=== PATIENT | male | born 1985 | race Caucasian/White ===

== ENCOUNTER 2017-05-28 14:43 | Emergency (ER) | payer OTHER ==
[~2017-05-28] VITALS: Ht 175.3 cm; Wt 84.8 kg
[2017-05-28 14:47] VITALS: TEMP 36.8; Ht 175.3 cm; Wt 84.8 kg
[2017-05-28] MEDS ORDERED: SODIUM CHLORIDE 0.9% 1000ML 1,000 ML IV STA (15:09)
[2017-05-28] MEDS ORDERED: KETOROLAC TROMETHAMINE 30 MG/ML VIAL IV STA (15:09)
[2017-05-28] MEDS ORDERED: DIAZEPAM INJ 5 MG/ML 2 ML CARP IV STA (15:35)
[2017-05-28] MEDS ORDERED: MULT-1073 PO (15:36)
[2017-05-28 15:39] LABS: BASO % 0.5 %; BASO ABS # 0.02 K/uL (0-0.2); EOS % 1.4 %; EOS ABS # 0.06 K/uL (0-0.5); HEMATOCRIT 48.9 % (42-52); HEMOGLOBIN 17.3 g/dL (14.0-18.0); IG# 0.02 K/uL (0.00-0.02); LYMPH % 39.6 %; LYMPH ABS # 1.72 K/uL (1.2-3.4); MEAN CELL VOLUME 89.1 fL (80-100); MEAN CORPUSCULAR HEMOGLOBIN 31.5 pg (25-34); MEAN CORPUSCULAR HGB CONC 35.4 g/dl (32-36); MEAN PLATELET VOLUME 11.2 fL (7.4-10.4); MONO % 8.1 %; MONO ABS # 0.35 K/uL (0.11-0.59); NEUT % 49.9 %; NEUT ABS # 2.17 K/uL (1.4-6.5); PLATELET COUNT 178 K/uL (130-400); RED CELL DISTRIBUTION WIDTH CV 12.5 % (11.5-14.5); RED CELL DISTRIBUTION WIDTH SD 40.7 fL (36.4-46.3); WHITE BLOOD COUNT 4.34 K/uL (4.8-10.8)
[2017-05-28 15:57] LABS: ALBUMIN 4.1 gm/dl (3.4-5.0); CALCIUM 8.9 mg/dl (8.5-10.1); CREATININE 0.97 mg/dl (0.60-1.40); POTASSIUM 4.1 mmol/L (3.5-5.1)
[2017-05-28 16:00] LABS: TOTAL PROTEIN 7.6 gm/dl (6.4-8.2)
--- NOTE | 2017-05-28 16:20 | DIAGNOSTIC IMAGING REPORT ---
ABD/PELVIS WITHOUT FOR STONE HISTORY: 31 years-old Male left flank pain acute left-sided flank pain COMPARISON: None available TECHNIQUE: Multiple axial CT images of the abdomen and pelvis were obtained without the use of IV contrast. A dose lowering technique was used consistent with the principals of MERLYN. FINDINGS: There is minimal dependent subsegmental bibasilar atelectasis. 2 mm solid nodule of the lateral basal segment left lower lobe is likely benign. There is no pneumatosis or pneumoperitoneum identified. Imaged inferior cardiac chambers are unremarkable. Evaluation of the solid abdominal organs is limited without the use of IV contrast. Within the limitations of the study, the liver, spleen, pancreas and adrenal glands are unremarkable. Gallbladder is mildly contracted. 2 mm calcification of the spleen noted. Kidneys, ureters and urinary bladder are unremarkable. Phleboliths noted within the pelvis. No ureteral calculi or obstructive uropathy. Aorta is normal in course and caliber. No bulky adenopathy. No bowel obstruction or focal bowel wall thickening identified. Rectosigmoid and descending colon are collapsed. The appendix is normal in caliber and is air-filled. 9 mm appendicolith is seen within the appendiceal tip. Soft tissues are unremarkable. Mild degenerative changes of the bilateral SI joints. Degenerative changes are also noted at the L2 vertebral body. IMPRESSION: 1. No acute intra-abdominal or intrapelvic abnormality identified, specifically no renal calculi or obstructive uropathy. 2. [address] evidence of acute appendicitis. 3. No bowel obstruction or definite bowel wall thickening identified. The above report was generated using voice recognition software. It may contain grammatical, syntax or spelling errors. Electronically signed by: Chester Cavazos M.D. 05/28/2017 4:19 PM Dictated Date/Time: 05/28/2017 4:09 PM
[2017-05-28] MEDS ORDERED: METH4PAK PO ×2 (16:59→17:08)
[2017-05-28] MEDS ORDERED: CYCL10TA6 PO ×2 (16:59→17:08)
--- NOTE | 2017-05-28 17:00 | EMERGENCY ROOM VISIT NOTE ---
History First contact with patient: 14:52 Chief Complaint: BACK PAIN Stated Complaint: SHARP SIDE/JAS PAIN, CANT STRAIGHTEN BACK History of Present Illness The patient is a 31 year old male who presents to the Emergency Room with complaints of left flank pain which began this morning. The patient describes a sharp pain which he locates just below the left ribs which was initially intermittent, but worsening throughout the day. The patient went to school, and was in class, where he sat down and noticed increased pain. He describes a spasms sensation and states the pain is a severe pressure in his back. He is most comfortable when hunched over, and states he feels that putting pressure on the muscles helps with the pain. He denies any urinary symptoms, but has been unable to urinate yet today. He does have a history of kidney stones, and states his symptoms now are consistent with previous stones. He does report an episode of diaphoresis associated with the very severe pain which occurred this afternoon while attempting to get up out of a chair. He states the pain is shooting around toward the left lower quadrant of the abdomen, and states it is significantly worse with movement. He has not taken any medications for his pain. He is unable to lie down comfortably. He denies any paresthesias, numbness, tingling, or weakness of his lower extremities. Review of Systems A complete 10 point review of systems was reviewed with the patient with pertinent positives and negatives as per history of present illness. All else were negative. Past Medical/Surgical History Nephrolithiasis Social History Smoking Status: Never Smoker Smokeless Tobacco Use: No Alcohol Use: none Drug Use: none Marital Status: Housing Status: lives with family Occupation Status: student Current/Historical Medications Scheduled Cyclobenzaprine Hcl (Flexeril), 10 MG PO TID Methylprednisolone (Medrol Dosepak), 0 PO DAILY Multiple Vitamins W/ Minerals (Multivitamin Mens), 1 TAB PO DAILY Allergies None Physical Exam Vital Signs Date Time Temp Pulse Resp B/P (MAP) Pulse Ox O2 Delivery O2 Flow Rate FiO2 05/28/17 16:11 65 129/66 97 Room Air 05/28/17 14:47 36.8 92 16 133/85 96 Room Air Physical Exam VITALS: Vitals are noted on the nurse's note and reviewed by myself. Vital signs stable. GENERAL: This is a 31-year-old white male, in no acute distress, nondiaphoretic , well-developed well-nourished. SKIN: The skin was without rashes, erythema, edema, or bruising. There is no tenting of the skin. Capillary reflex less than 2 seconds. HEAD: Normocephalic atraumatic. EARS: External auditory canals clear, tympanic membranes pearly fisher without erythema or effusion bilaterally. EYES: Pupils equal round and reactive to light and accommodation. Conjunctivae without injection, sclerae without icterus. Extraocular movements intact. NOSE: Patent, turbinates without inflammation or discharge. No sinus tenderness. MOUTH: Mucous membranes moist. Tonsils are not enlarged. Pharynx without erythema or exudate. Uvula midline. Airway patent. Tongue does not deviate. NECK: Supple without nuchal rigidity. No lymphadenopathy. No thyromegaly. Cervical spine is nontender. No JVD. HEART: Regular rate and rhythm without murmurs gallops or rubs. LUNGS: Clear to auscultation bilaterally without wheezes, rales or rhonchi. No dullness to percussion. No retractions or accessory muscle use. ABDOMEN: Positive bowel sounds x 4. Normal tympanic percussion. Positive CVA tenderness on the left. There is some left lower quadrant abdominal discomfort on palpation. Soft, without masses or organomegaly. Holden sign negative. No guarding or rebound tenderness. MUSCULOSKELETAL: No muscle atrophy, erythema, or edema noted of the back. There is no tenderness over the lumbar spinous processes. There is mild tenderness over the paraspinous muscles on the left. There is no tenderness over the thoracic spine or paraspinous muscles. There are muscle spasms present. The patient is slow to move around with maximum tenderness with position changes. Negative straight leg raise test. NEURO: Patient was alert and oriented to person place and time. Normal sensation to light and sharp touch. Deep tendon reflexes 2+ throughout. No focal neurological deficits. Medical Decision & Procedures ER Provider Diagnostic Interpretation: ABD/PELVIS WITHOUT FOR STONE HISTORY: 31 years-old Male left flank pain acute left-sided flank pain COMPARISON: None available TECHNIQUE: Multiple axial CT images of the abdomen and pelvis were obtained without the use of IV contrast. A dose lowering technique was used consistent with the principals of ALARA. FINDINGS: There is minimal dependent subsegmental bibasilar atelectasis. 2 mm solid nodule of the lateral basal segment left lower lobe is likely benign. There is no pneumatosis or pneumoperitoneum identified. Imaged inferior cardiac chambers are unremarkable. Evaluation of the solid abdominal organs is limited without the use of IV contrast. Within the limitations of the study, the liver, spleen, pancreas and adrenal glands are unremarkable. Gallbladder is mildly contracted. 2 mm calcification of the spleen noted. Kidneys, ureters and urinary bladder are unremarkable. Phleboliths noted within the pelvis. No ureteral calculi or obstructive uropathy. Aorta is normal in course and caliber. No bulky adenopathy. No bowel obstruction or focal bowel wall thickening identified. Rectosigmoid and descending colon are collapsed. The appendix is normal in caliber and is air-filled. 9 mm appendicolith is seen within the appendiceal tip. Soft tissues are unremarkable. Mild degenerative changes of the bilateral SI joints. Degenerative changes are also noted at the L2 vertebral body. IMPRESSION: 1. No acute intra-abdominal or intrapelvic abnormality identified, specifically no renal calculi or obstructive uropathy. 2. [address] evidence of acute appendicitis. 3. No bowel obstruction or definite bowel wall thickening identified. The above report was generated using voice recognition software. It may contain grammatical, syntax or spelling errors. Electronically signed by: Chester Cavazos M.D. 05/28/2017 4:19 PM Dictated Date/Time: 05/28/2017 4:09 PM Laboratory Results 05/28/17 15:00 Red Blood Count 5.49, Mean Corpuscular Volume 89.1, Mean Corpuscular Hemoglobin 31.5, Mean Corpuscular Hemoglobin Concent 35.4, Mean Platelet Volume 11.2, Neutrophils (%) (Auto) 49.9, Lymphocytes (%) (Auto) 39.6, Monocytes (%) (Auto) 8.1, Eosinophils (%) (Auto) 1.4, Basophils (%) (Auto) 0.5, Neutrophils # (Auto) 2.17, Lymphocytes # (Auto) 1.72, Monocytes # (Auto) 0.35, Eosinophils # (Auto) 0.06, Basophils # (Auto) 0.02 05/28/17 15:00 Test 05/28/17 15:00 05/28/17 16:40 White Blood Count 4.34 K/uL (4.8-10.8) Red Blood Count 5.49 M/uL (4.7-6.1) Hemoglobin 17.3 g/dL (14.0-18.0) Hematocrit 48.9 % (42-52) Mean Corpuscular Volume 89.1 fL (80-100) Mean Corpuscular Hemoglobin 31.5 pg (25-34) Mean Corpuscular Hemoglobin Concent 35.4 g/dl (32-36) Platelet Count 178 K/uL (130-400) Mean Platelet Volume 11.2 fL (7.4-10.4) Neutrophils (%) (Auto) 49.9 % Lymphocytes (%) (Auto) 39.6 % Monocytes (%) (Auto) 8.1 % Eosinophils (%) (Auto) 1.4 % Basophils (%) (Auto) 0.5 % Neutrophils # (Auto) 2.17 K/uL (1.4-6.5) Lymphocytes # (Auto) 1.72 K/uL (1.2-3.4) Monocytes # (Auto) 0.35 K/uL (0.11-0.59) Eosinophils # (Auto) 0.06 K/uL (0-0.5) Basophils # (Auto) 0.02 K/uL (0-0.2) RDW Standard Deviation 40.7 fL (36.4-46.3) RDW Coefficient of Variation 12.5 % (11.5-14.5) Immature Granulocyte % (Auto) 0.5 % Immature Granulocyte # (Auto) 0.02 K/uL (0.00-0.02) Anion Gap 8.0 mmol/L (3-11) Est Creatinine Clear Calc Drug Dose 109.4 ml/min Estimated GFR () 119.2 Estimated GFR (Non- 102.9 BUN/Creatinine Ratio 13.8 (10-20) Calcium Level 8.9 mg/dl (8.5-10.1) Total Bilirubin 1.2 mg/dl (0.2-1) Aspartate Amino Transf (AST/SGOT) 21 U/L (15-37) Alanine Aminotransferase (ALT/SGPT) 36 U/L (12-78) Alkaline Phosphatase 46 U/L (45-117) Total Protein 7.6 gm/dl (6.4-8.2) Albumin 4.1 gm/dl (3.4-5.0) Globulin 3.5 gm/dl (2.5-4.0) Albumin/Globulin Ratio 1.2 (0.9-2) Medications Administered Medications (Trade) Dose Ordered Sig/Yovany Route Start Time Stop Time Status Last Admin Dose Admin Sodium Chloride 1,000 ml @ 999 mls/hr Q1H1M STAT IV 05/28/17 15:09 05/28/17 16:09 DC 05/28/17 15:22 999 MLS/HR Ketorolac Tromethamine (Toradol Inj) 30 mg NOW STAT IV 05/28/17 15:09 05/28/17 15:11 DC 05/28/17 15:22 30 MG Diazepam (Valium Inj) 5 mg NOW STAT IV 05/28/17 15:35 05/28/17 15:36 DC 05/28/17 15:49 5 MG ED Course The patient was seen and evaluated as above. IV access obtained, labs drawn. The patient was given 30 mg Toradol and 1 L normal saline solution IV. The patient reports ongoing pain. He was given 5 mg Valium IV and notes significant improvement. CT abdomen/pelvis without contrast was ordered. This was reviewed by myself and radiologist as above. Lab results reviewed by myself. I discussed the findings with the patient at bedside. He is feeling much better. Discharge instructions reviewed, the patient was discharged home in good condition. Medical Decision This is a 31-year-old male patient presents to the emergency department today complaining of left flank pain. The pain does seem to radiate into the left lower quadrant of the abdomen. The patient does have a history of kidney stones , and states this pain is consistent with previous episodes of since he has experienced. The pain is not completely consistent with either nephrolithiasis or muscle strain pain, and there was no injury preceding the pain. Workup was initiated. CT scan did not show any signs of acute nephrolithiasis or ureteral stone. There is no obvious cause for the patient's pain on scan, however he does have some degenerative changes in the SI joints and vertebrae. The patient 's laboratory workup did not show any significant leukocytosis, anemia, thrombocytopenia. There was no significant renal, hepatic, electrolyte abnormalities. The patient's urinalysis was negative for blood or signs of infection. The patient's symptoms significantly improved with Valium for muscle spasms, and I suspect a possible lumbar strain or recently passed stone. The patient will be treated with oral steroids and muscle relaxers outpatient for his symptoms. He was encouraged to follow-up closely with his primary care provider. Discharge instructions reviewed, the patient was discharged home in good condition. Etiologies such as renal colic, appendicitis, diverticulitis, mesenteric ischemia, aortic pathology, infections, inflammatory bowel disease, PUD, biliary pathology, UTI, musculoskeletal, as well as others were entertained. Medication Reconcilliation Current Medication List: was personally reviewed by me Blood Pressure Screening Patient's blood pressure: Normal blood pressure Impression Primary Impression: Strain of lumbar region Additional Impression: Flank pain Departure Information Dispostion Home / Self-Care Condition GOOD Prescriptions Methylprednisolone (MEDROL DOSEPAK) 4 Mg Kevon 0 PO DAILY, #1 PKT Prov: Allison Ferrer PA-C 05/28/17 Cyclobenzaprine Hcl (FLEXERIL) 10 Mg Tab 10 MG PO TID, #15 TAB Prov: Allison Ferrer PA-C 05/28/17 Referrals No Doctor, Assigned (PCP) Patient Instructions ED Flank Pain Uncertain Cause, ED Neck Back Pain General, [facility] Additional Instructions You have been treated in the Emergency Department for Back Pain. You have received pain medicine in the emergency department which impairs your ability to operate a vehicle. It is illegal for you to drive after receiving these medicines. You have been prescribed a Medrol Dosepak. This is a steroid which will help decrease your inflammation, redness, and itch. Take the medicine as prescribed. Take the ENTIRE 6 day course of the steroids. No NSAIDs while taking steroids. These include Advil, ibuprofen, Motrin, Aleve, naproxen over-the- counter. You have been prescribed Flexeril (cyclobenzaprine) 1 tabs orally, three times per day. Do NOT exceed 30 mg (3 tabs) per day. Take your first dose at bedtime as it can make you drowsy. Always take all medications as prescribed. For pain control, you can use the following mdlp-ihd-ofhxaxh medicines (if >12 yo): Ibuprofen(Motrin, Advil) may be used for fever or pain. Use 600mg every six hours as needed. Take with food. Avoid using more than 2400mg in a 24 hour period. Do not use 2400mg per day for more than three consecutive days without physician direction. Prolonged inappropriate use can lead to stomach upset or ulcers. No NSAIDs while taking steroids. (AND/OR) Acetaminophen(Tylenol) may be used for fever or pain. Use 1000mg every six hours as needed. Avoid using more than 3000mg in a 24 hour period. If this is an acute injury, ice can be applied to the area of pain for the first 3 days to help decrease pain and inflammation. After the first 3 days, a heating pad can be used over the area for continued soothing relief. You should schedule a follow-up appointment in 2-3 days with your Primary Care Provider for further evaluation and treatment of your back pain. Return to the Emergency Department if your current symptoms worsen despite treatment course outlined above, or if you develop any of the following symptoms : intractable pain despite aforementioned treatment course, loss of control of your bowel or bladder, numbness or tingling in your groin, or development of a fever. School Instructions Return To School: 2 days Problem Qualifiers Primary Impression: Strain of lumbar region Encounter type: initial encounter Qualified Codes: S39.012A - Strain of muscle, fascia and tendon of lower back, initial encounter
[2017-05-28 17:10] VITALS: BP 128/64; PULSE 68; O2SAT 99
== END 2017-05-28 17:11 | disposition home or self-care (01) ==
LOC: C.EDB 14:46 → C.EDD 17:11
DX: S39.012A Strain of muscle, fascia and tendon of lower back, initial encounter (principal); R10.9 Unspecified abdominal pain; X58.XXXA Exposure to other specified factors, initial encounter